=== PATIENT | female | born 1965 | race African-American/Black ===

== ENCOUNTER 2018-10-24 07:31 | Emergency (ER) | payer OTHER ==
[~2018-10-24] VITALS: Ht 154.9 cm; Wt 63.5 kg
[~2018-10-24 07:31] MED LIST: NAPROSYN500 MG PO; TRAMADOL 50 MG50 MG PO
[2018-10-24] MEDS ORDERED: ACYCLOVIR 400400 MG PO (08:33)
[2018-10-24 08:55] VITALS: BP 110/80
== END 2018-10-24 08:56 | disposition home or self-care (01) ==
LOC: ER 07:31
DX: Z98.890 Other specified postprocedural states (principal); R21 Rash and other nonspecific skin eruption